=== PATIENT | female | born 1965 | race Caucasian/White ===

== ENCOUNTER → 2016-11-10 | Outpatient (REF) | payer OTHER | LOC: M LAB REF 17:52 | PROVIDERS: ATTEND Family Medicine | DX: Z01.419 Encounter for gynecological examination (general) (routine) without abnormal findings (principal) ==

== ENCOUNTER → 2016-11-11 | Outpatient (CLI) | payer OTHER ==
[2016-11-11 09:27] LABS: BASO % 0.4 % (0.0-1.0); EOS # 0.2 K/mm3 (0.0-0.50); EOS % 3.2 % (0.0-3.0); LARGE UNSTAINED CELL # 0.2 K/mm3 (0.0-0.4); LARGE UNSTAINED CELL % 3.1 % (0.0-4.0); LYMPH # 2.7 K/mm3 (1.5-4.5); LYMPH % 45.9 % (24.0-44.0); MEAN CORPUSCULAR HGB CONC 33.8 g/dl (32.0-36.5); MEAN CORPUSCULAR VOLUME 94.7 fl (80.0-96.0); MONO # 0.3 K/mm3 (0.0-0.8); MONO % 5.5 % (0.0-5.0); NEUTROPHILS # 2.5 K/mm3 (1.8-7.7); NEUTROPHILS % 41.9 % (36.0-66.0); PLATELET COUNT, AUTOMATED 248 k/mm3 (150-450); RED CELL DISTRIBUTION WIDTH 12.1 % (11.5-14.5); WHITE BLOOD COUNT 5.9 K/mm3 (4.0-10.0)
[2016-11-11 10:14] LABS: ALBUMIN 3.8 GM/DL (3.2-5.2); ALBUMIN/GLOBULIN RATIO 1.09 (1.00-1.93); BILIRUBIN,TOTAL 0.4 MG/DL (0.2-1.0); CREATININE FOR GFR 1.09 MG/DL (0.55-1.02); GLOMERULAR FILTRATION RATE 56.1 (>51); POTASSIUM SERUM 4.1 MEQ/L (3.5-5.1); TOTAL PROTEIN 7.3 GM/DL (6.4-8.2)
== END ==
LOC: M LAB 08:37
PROVIDERS: ATTEND Family Medicine
DX: I10 Essential (primary) hypertension (principal)

== ENCOUNTER → 2017-06-08 | Outpatient (REF) ==
[2017-06-08 10:12] LABS: HEMATOCRIT 39.6 % (36.0-47.0); HEMOGLOBIN 13.2 g/dl (12.0-16.0); MEAN CORPUSCULAR HEMOGLOBIN 30.8 pg (27.0-33.0); MEAN CORPUSCULAR HGB CONC 33.3 g/dl (32.0-36.5); MEAN CORPUSCULAR VOLUME 92.5 fl (80.0-96.0); PLATELET COUNT, AUTOMATED 254 10^3/uL (150-450); RED BLOOD COUNT 4.28 10^6/uL (4.00-5.40); RED CELL DISTRIBUTION WIDTH 12.6 % (11.5-14.5); WHITE BLOOD COUNT 7.7 10^3/uL (4.0-10.0)
[2017-06-08 10:51] LABS: ANION GAP 5 MEQ/L (8-16); BLOOD UREA NITROGEN 20 MG/DL (7-18); CALCIUM LEVEL 9.1 MG/DL (8.5-10.1); CARBON DIOXIDE LEVEL 32 MEQ/L (21-32); CHLORIDE LEVEL 104 MEQ/L (98-107); CHOLESTEROL LEVEL 205 MG/DL (<200); CREATININE FOR GFR 1.21 MG/DL (0.55-1.30); GLOMERULAR FILTRATION RATE 49.6 (>51); GLUCOSE, FASTING 92 MG/DL (70-100); HDL CHOLESTEROL 48 MG/DL (>40); LDL CHOLESTEROL 121.2 MG/DL (<100); NON-HDL-C 157 MG/DL; POTASSIUM SERUM 3.8 MEQ/L (3.5-5.1); SODIUM LEVEL 141 MEQ/L (136-145); TRIGLYCERIDES LEVEL 179 MG/DL (<150)
== END ==
LOC: M LAB 09:42
DX: Z02.9 Encounter for administrative examinations, unspecified (principal); Z12.31 Encounter for screening mammogram for malignant neoplasm of breast

== ENCOUNTER 2017-09-15 07:05 | Day surgery (SDC) | payer OTHER ==
[2017-09-15] MEDS ORDERED: VASOPRESSIN INJ 20 UNITS/ML VIAL As Ordered ×2 (07:11)
[2017-09-15 07:29] LABS: HEMATOCRIT 38.3 % (36.0-47.0); MEAN CORPUSCULAR HEMOGLOBIN 31.6 pg (27.0-33.0); MEAN CORPUSCULAR HGB CONC 33.9 g/dl (32.0-36.5); MEAN CORPUSCULAR VOLUME 93.2 fl (80.0-96.0); PLATELET COUNT, AUTOMATED 233 10^3/uL (150-450); RED BLOOD COUNT 4.11 10^6/uL (4.00-5.40); RED CELL DISTRIBUTION WIDTH 12.5 % (11.5-14.5); WHITE BLOOD COUNT 6.7 10^3/uL (4.0-10.0)
[2017-09-15] MEDS ORDERED: LR 1,000 ML IV ×2 (07:30)
[2017-09-15 07:46] LABS: ANION GAP 6 MEQ/L (8-16); BLOOD UREA NITROGEN 17 MG/DL (7-18); CALCIUM LEVEL 9.4 MG/DL (8.5-10.1); CARBON DIOXIDE LEVEL 31 MEQ/L (21-32); CHLORIDE LEVEL 103 MEQ/L (98-107); CREATININE FOR GFR 1.17 MG/DL (0.55-1.30); GLOMERULAR FILTRATION RATE 51.5 (>51); GLUCOSE, FASTING 96 MG/DL (70-100); POTASSIUM SERUM 3.1 MEQ/L (3.5-5.1); SODIUM LEVEL 140 MEQ/L (136-145)
[2017-09-15] MEDS: KCL 10MEQ/100ML SWI (KRUN) 100 ML IV ×2 (08:34)
[2017-09-15] MEDS: POTASSIUM CHLORIDE 10 MEQ SR TABLET PO ×2 (08:35)
[2017-09-15] MEDS: ACETAMINOPHEN 650 MG SUPP As Ordered ×2 (09:10)
[2017-09-15] MEDS ORDERED: ONDANSETRON 4MG/2ML VIAL (J2405) As Ordered ×2 (09:22)
[2017-09-15] MEDS ORDERED: dexameTHASONE 4 MG/ML 1ML VIAL (J1100) As Ordered ×2 (09:22)
[2017-09-15] MEDS ORDERED: ePHEDrine SULFATE 25 MG/5 ML(5MG/ML) SYRINGE As Ordered ×4 (09:22→09:42)
[2017-09-15] MEDS ORDERED: PROPOFOL 200 MG/20 ML VIAL As Ordered ×4 (09:22→14:04)
[2017-09-15] MEDS ORDERED: KETOROLAC 60 MG/2 ML VIAL (J1885) As Ordered ×2 (09:22)
[2017-09-15] MEDS ORDERED: LIDOCAINE 2% INJ 100 MG/5 ML SDV (FOR ANES.) As Ordered ×2 (09:22)
[2017-09-15] MEDS ORDERED: fentaNYL 250 MCG/5 ML INJECTION (J3010) As Ordered ×2 (09:22)
[2017-09-15] MEDS ORDERED: ROCURONIUM BROMIDE 50 MG/5 ML VIAL As Ordered ×4 (09:22→10:53)
[2017-09-15] MEDS ORDERED: HYDROmorphone HCL 2 MG/ML 1ML VIAL (J1170) As Ordered ×2 (09:22)
[2017-09-15] MEDS ORDERED: MIDAZOLAM INJ 2 MG/2 ML VIAL (J2250) As Ordered ×2 (09:22)
[2017-09-15] MEDS ORDERED: NEOSTIGMINE 10 MG/10 ML VIAL (J2710) As Ordered ×2 (09:40)
[2017-09-15] MEDS ORDERED: GLYCOPYRROLATE INJ 0.2 MG/ML 2 ML VIAL As Ordered ×4 (09:40)
[2017-09-15] MEDS: BUPIVACAINE/EPIN 0.25% 30 ML VIAL As Ordered ×2 (09:54)
[2017-09-15] MEDS: FLUORESCEIN 10% (100MG/ML) 5 ML VIAL As Ordered ×2 (09:54)
[2017-09-15] MEDS: METHYLENE BLUE 0.5% (5MG/ML) 10 ML AMP (PROVAYBLUE)(Q9968 PER 1MG) As Ordered ×2 (10:06)
[2017-09-15] MEDS: BUPIVACAINE/EPIN 0.5% 30 ML VIAL As Ordered ×2 (10:07)
[2017-09-15] MEDS ORDERED: PERCOCET 5MG/325MG TAB PO ×2 (14:45)
[2017-09-15] MEDS ORDERED: ONDANSETRON 4MG/2ML VIAL (J2405) IV ×2 (14:45)
[2017-09-15] MEDS ORDERED: HYDROMORPHONE HCL 0.5 MG/ 0.5 ML SYRINGE (J1170 PER 1) IV ×2 (14:45)
[2017-09-15] MEDS: fentaNYL 100 MCG/2 ML INJECTION (J3010) IV ×4 (14:48→14:53)
[2017-09-15] MEDS: LR 1,000 ML IV ×4 (15:46→19:09)
[2017-09-15] MEDS: PERCOCET 5MG/325MG TAB PO ×2 (16:32)
[2017-09-15] MEDS: SIMETHICONE 80 MG CHEW TAB PO ×2 (18:00)
[2017-09-15] MEDS: IBUPROFEN 800 MG TAB PO ×2 (19:08)
[2017-09-16] MEDS: SIMETHICONE 80 MG CHEW TAB PO ×4 (00:27→06:11)
[2017-09-16] MEDS: IBUPROFEN 800 MG TAB PO ×4 (00:28→06:12)
[2017-09-16] MEDS: PERCOCET 5MG/325MG TAB PO ×2 (08:35)
== END 2017-09-16 11:40 | disposition home or self-care (01) ==
LOC: M SDC 07:05 → M PED 15:31
DX: N81.2 Incomplete uterovaginal prolapse (principal); N81.10 Cystocele, unspecified; N81.6 Rectocele; N81.89 Other female genital prolapse; I10 Essential (primary) hypertension; K21.9 Gastro-esophageal reflux disease without esophagitis; M17.0 Bilateral primary osteoarthritis of knee; J45.909 Unspecified asthma, uncomplicated; Z88.2 Allergy status to sulfonamides; Z79.899 Other long term (current) drug therapy; Z78.0 Asymptomatic menopausal state
CPT/HCPCS: 58571

== ENCOUNTER → 2017-10-27 | Outpatient (CLI) | payer OTHER ==
[2017-10-27 15:35] LABS: ANION GAP 6 MEQ/L (8-16); BLOOD UREA NITROGEN 17 MG/DL (7-18); CALCIUM LEVEL 9.1 MG/DL (8.5-10.1); CARBON DIOXIDE LEVEL 32 MEQ/L (21-32); CHLORIDE LEVEL 105 MEQ/L (98-107); CREATININE FOR GFR 1.13 MG/DL (0.55-1.30); GLOMERULAR FILTRATION RATE 53.6 (>51); GLUCOSE, FASTING 93 MG/DL (70-100); POTASSIUM SERUM 4.3 MEQ/L (3.5-5.1); SODIUM LEVEL 143 MEQ/L (136-145)
== END ==
LOC: M LAB 14:32
DX: E87.6 Hypokalemia (principal)
CPT/HCPCS: 80048

== ENCOUNTER → 2017-11-29 | Outpatient (CLI) | payer OTHER ==
[2017-11-29 19:28] LABS: ANION GAP 10 MEQ/L (8-16); BLOOD UREA NITROGEN 21 MG/DL (7-18); CALCIUM LEVEL 9.3 MG/DL (8.5-10.1); CARBON DIOXIDE LEVEL 30 MEQ/L (21-32); CHLORIDE LEVEL 103 MEQ/L (98-107); CREATININE FOR GFR 1.24 MG/DL (0.55-1.30); GLOMERULAR FILTRATION RATE 48.2 (>51); GLUCOSE, FASTING 104 MG/DL (70-100); POTASSIUM SERUM 3.6 MEQ/L (3.5-5.1); SODIUM LEVEL 143 MEQ/L (136-145)
== END ==
LOC: M LAB 15:41
DX: I10 Essential (primary) hypertension (principal)
CPT/HCPCS: 80048

== ENCOUNTER → 2018-07-19 | Outpatient (REF) | payer OTHER ==
[~2018-07-19] MED LIST: BANO25CA PO; CHLO125TA PO; IBUP80TA PO; LISI10TA4 PO; OMEP20CA3 PO; OXYC1TAB23 PO; PROAAER10
[2018-07-19 10:45] LABS: HEMATOCRIT 38.8 % (36.0-47.0); HEMOGLOBIN 12.7 g/dl (12.0-15.5); MEAN CORPUSCULAR HEMOGLOBIN 30.9 pg (27.0-33.0); MEAN CORPUSCULAR HGB CONC 32.7 g/dl (32.0-36.5); MEAN CORPUSCULAR VOLUME 94.4 fl (80.0-96.0); PLATELET COUNT, AUTOMATED 240 10^3/uL (150-450); RED BLOOD COUNT 4.11 10^6/uL (4.00-5.40); WHITE BLOOD COUNT 6.3 10^3/uL (4.0-10.0)
[2018-07-19 11:14] LABS: CALCIUM LEVEL 9.5 MG/DL (8.5-10.1); CHOLESTEROL RISK RATIO 4.59 (<5); CREATININE FOR GFR 1.12 MG/DL (0.55-1.30); POTASSIUM SERUM 3.6 MEQ/L (3.5-5.1)
--- NOTE | 2018-07-19 12:33 | REPMRS ---
Patient History The patient states she has not had a clinical breast exam in over a year. Family history of breast cancer at age 70 in mother, breast cancer at age 50 in maternal aunt. Digital Mammo Screening Bilat: July 19, 2018 - Exam #: [id number] Bilateral CC and MLO view(s) were taken. Technologist: Rain Mcnulty, Technologist Prior study comparison: June 08, 2017, bilateral digital mammo screening bilat performed at [facility]. October 10, 2015, bilateral digital mammo screening bilat performed at [facility]. August 07, 2013, bilateral digital woman screen mammo, performed at [facility]. FINDINGS: There are scattered fibroglandular densities. There has been no change in the appearance of the mammogram from the prior studies. There is a mild amount of scattered fibroglandular density which is fairly symmetric. There is no interval development of dominant mass, architectural distortion, or clustered microcalcification suggestive of malignancy. 3-D tomosynthesis shows no additional findings. Assessment: BI-RADS/ACR category 1 mammogram. Negative Mammogram. Recommendation Breast MRI of both breasts in 6 months. Routine screening mammogram of both breasts in 1 year (for women over age 40). This patient's Lifetime Breast Cancer RIsk is estimated at 25.8 %. Annual screening Breast MRI scanniing is recommended for patient's whose lifetime risk assessment is over 20%. This mammogram was interpreted with the aid of an FDA-approved computer-aided dectection system. Electronically Signed By: Arnaldo Tovar MD 07/19/18 0139
== END ==
LOC: M RAD 10:01 → EDSTATUS 10:30
PROVIDERS: ATTEND Family Medicine
DX: Z12.31 Encounter for screening mammogram for malignant neoplasm of breast (principal)

== ENCOUNTER → 2019-05-22 | Outpatient (REF) ==
[~2019-05-22] MED LIST changes: +OMEP1CAP73 PO; -OMEP20CA3 PO
[2019-05-22 11:57] LABS: HEMATOCRIT 39.2 % (36.0-47.0); HEMOGLOBIN 12.6 g/dl (12.0-15.5); MEAN CORPUSCULAR HEMOGLOBIN 30.9 pg (27.0-33.0); MEAN CORPUSCULAR HGB CONC 32.1 g/dl (32.0-36.5); MEAN CORPUSCULAR VOLUME 96.1 fl (80.0-96.0); PLATELET COUNT, AUTOMATED 259 10^3/uL (150-450); RED BLOOD COUNT 4.08 10^6/uL (4.00-5.40); WHITE BLOOD COUNT 6.7 10^3/uL (4.0-10.0)
[2019-05-22 12:21] LABS: CALCIUM LEVEL 9.3 MG/DL (8.5-10.1); CHOLESTEROL RISK RATIO 4.521 (<5); CREATININE FOR GFR 1.08 MG/DL (0.55-1.30); GLOMERULAR FILTRATION RATE 56.1 (>51); POTASSIUM SERUM 3.6 MEQ/L (3.5-5.1)
== END ==
LOC: M LAB 10:27
PROVIDERS: ATTEND Physician Assistant
DX: Z02.1 Encounter for pre-employment examination (principal)

== ENCOUNTER → 2020-05-17 | Outpatient (CLI) | payer OTHER ==
[~2020-05-17] MED LIST changes: +LISI10TA22 PO; -LISI10TA4 PO
[2020-05-17 08:35] LABS: BASO % 0.7 % (0.0-1.0); EOS # 0.3 10^3/uL (0.0-0.5); EOS % 4.1 % (0.0-3.0); HEMOGLOBIN 12.5 g/dl (12.0-15.5); LYMPH # 2.3 10^3/uL (1.5-5.0); LYMPH % 37.1 % (24.0-44.0); MEAN CORPUSCULAR HEMOGLOBIN 31.3 pg (27.0-33.0); MEAN CORPUSCULAR HGB CONC 32.9 g/dl (32.0-36.5); MONO # 0.4 10^3/uL (0.0-0.8); NEUTROPHILS # 3.1 10^3/uL (1.5-8.5); NEUTROPHILS % 50.9 % (36.0-66.0); PLATELET COUNT, AUTOMATED 241 10^3/uL (150-450); WHITE BLOOD COUNT 6.1 10^3/uL (4.0-10.0)
[2020-05-17 09:14] LABS: ALBUMIN 3.9 GM/DL (3.2-5.2); BILIRUBIN,TOTAL 0.3 MG/DL (0.2-1.0); CALCIUM LEVEL 9.3 MG/DL (8.5-10.1); CHOLESTEROL RISK RATIO 4.117 (<5); CREATININE FOR GFR 1.17 MG/DL (0.55-1.30); FREE T4 0.94 NG/DL (0.76-1.46); GLOMERULAR FILTRATION RATE 50.9 (>51); POTASSIUM SERUM 3.3 MEQ/L (3.5-5.1); THYROID STIMULATING HORMONE 1.97 uIU/ML (0.358-3.740); TOTAL PROTEIN 7.3 GM/DL (6.4-8.2)
== END ==
LOC: M LAB 08:02
PROVIDERS: ATTEND Physician Assistant
DX: Z13.0 Encounter for screening for diseases of the blood and blood-forming organs and certain disorders involving the immune mechanism (principal); I10 Essential (primary) hypertension

== ENCOUNTER → 2020-05-31 | Outpatient (CLI) | payer OTHER ==
--- NOTE | 2020-05-31 16:29 | REPMRS ---
Patient History The patient states she has not had a clinical breast exam in over a year. Patient is postmenopausal. Family history of breast cancer at age 70 in mother, breast cancer at age 50 in maternal aunt. Digital Woman Screen Mammo: May 31, 2020 - Exam #: [id number] Bilateral CC and MLO view(s) were taken. Technologist: Dian Arechiga, Technologist Prior study comparison: July 19, 2018, bilateral digital mammo screening bilat, performed at [facility]. June 08, 2017, bilateral digital mammo screening bilat, performed at [facility]. October 10, 2015, bilateral digital mammo screening bilat, performed at [facility]. FINDINGS: The breast tissue is almost entirely fat. The Volpara volumetric breast density category is: A. There has been no change in the appearance of the mammogram from the prior studies. There is no interval development of dominant mass, architectural distortion, or grouped microcalcification typical of malignancy. 3-D tomosynthesis shows no additional findings. Assessment: BI-RADS/ACR category 1 mammogram. Negative Mammogram. Recommendation Breast MRI of both breasts in 6 months. Routine screening mammogram of both breasts in 1 year (for women over age 40). This patient's [facility] Lifetime Breast Cancer RIsk is estimated at 24.7 %. Annual screening Breast MRI scanniing is recommended for patient's whose lifetime risk assessment is over 20%. This mammogram was interpreted with the aid of an FDA-approved computer-aided dectection system. Electronically Signed By: Arnaldo Tovar MD 05/31/20 1735
== END ==
LOC: M WHC 12:57
PROVIDERS: ATTEND Physician Assistant
DX: Z12.31 Encounter for screening mammogram for malignant neoplasm of breast (principal); Z80.3 Family history of malignant neoplasm of breast

== ENCOUNTER → 2020-10-03 | Outpatient (CLI) | payer OTHER ==
[~2020-10-03] MED LIST changes: -BANO25CA PO; +DIPH-319 PO
[2020-10-03 11:31] LABS: ALBUMIN 3.9 GM/DL (3.2-5.2); BILIRUBIN,TOTAL 0.4 MG/DL (0.2-1.0); CALCIUM LEVEL 9.7 MG/DL (8.5-10.1); CREATININE FOR GFR 1.09 MG/DL (0.55-1.30); GLOMERULAR FILTRATION RATE 55.3 (>51); MAGNESIUM LEVEL 2.3 MG/DL (1.8-2.4); POTASSIUM SERUM 3.6 MEQ/L (3.5-5.1); TOTAL PROTEIN 7.3 GM/DL (6.4-8.2)
[2020-10-06 03:07] LABS: PROTEIN C FUNCTIONAL ACTIVITY 180 % (73-180); PROTEIN S FUNCTIONAL ACTIVITY 44 % (63-140)
== END ==
LOC: M WUC 08:32
PROVIDERS: ATTEND Physician Assistant
DX: Z00.00 Encounter for general adult medical examination without abnormal findings (principal); E87.6 Hypokalemia; Z83.2 Family history of diseases of the blood and blood-forming organs and certain disorders involving the immune mechanism

== ENCOUNTER → 2021-06-06 | Outpatient (CLI) | payer OTHER | LOC: M WHC 08:27 | PROVIDERS: ATTEND Nurse Practitioner Adult Health | DX: Z12.31 Encounter for screening mammogram for malignant neoplasm of breast (principal) ==

== ENCOUNTER → 2022-03-24 | Outpatient (CLI) | payer OTHER ==
[2022-03-24 10:02] LABS: BASO % 0.7 % (0.0-1.0); EOS # 0.2 10^3/uL (0.0-0.5); EOS % 2.7 % (0.0-3.0); HEMATOCRIT 38.3 % (36.0-47.0); HEMOGLOBIN 12.1 g/dl (12.0-15.5); LYMPH # 2.7 10^3/uL (1.5-5.0); LYMPH % 44.8 % (24.0-44.0); MEAN CORPUSCULAR HGB CONC 31.6 g/dl (32.0-36.5); MEAN CORPUSCULAR VOLUME 98.2 fl (80.0-96.0); MONO # 0.5 10^3/uL (0.0-0.8); MONO % 8.2 % (2.0-8.0); NEUTROPHILS # 2.6 10^3/uL (1.5-8.5); NEUTROPHILS % 43.4 % (36.0-66.0); PLATELET COUNT, AUTOMATED 231 10^3/uL (150-450); WHITE BLOOD COUNT 5.9 10^3/uL (4.0-10.0)
[2022-03-24 10:34] LABS: BLOOD UREA NITROGEN 20 MG/DL (9-23); CALCIUM LEVEL 9.3 MG/DL (8.5-10.1); CARBON DIOXIDE LEVEL 29 MMOL/L (20-31); CHLORIDE LEVEL 105 MMOL/L (98-107); CHOLESTEROL LEVEL 191 MG/DL (<200); CHOLESTEROL RISK RATIO 3.72 (<5); CREATININE FOR GFR 0.97 MG/DL (0.55-1.30); GLOMERULAR FILTRATION RATE > 60.0 (>51); GLUCOSE, FASTING 89 MG/DL (60-100); HDL CHOLESTEROL 51.3 MG/DL (>40); LDL CHOLESTEROL 112.1 MG/DL (<100); NON-HDL-C 140 MG/DL; POTASSIUM SERUM 4.3 MMOL/L (3.5-5.1); SODIUM LEVEL 140 MMOL/L (136-145); TRIGLYCERIDES LEVEL 138 MG/DL (<150)
== END ==
LOC: M WUC 08:02
PROVIDERS: ATTEND Family Medicine
DX: I10 Essential (primary) hypertension (principal)

== ENCOUNTER → 2022-09-30 | Outpatient (CLI) | payer OTHER ==
[2022-09-30 10:44] LABS: BASO % 0.6 % (0.0-1.0); EOS # 0.1 10^3/uL (0.0-0.5); EOS % 2.1 % (0.0-3.0); HEMATOCRIT 37.4 % (36.0-47.0); LYMPH # 2.1 10^3/uL (1.5-5.0); LYMPH % 38.9 % (24.0-44.0); MEAN CORPUSCULAR HGB CONC 32.1 g/dl (32.0-36.5); MEAN CORPUSCULAR VOLUME 96.6 fl (80.0-96.0); MONO # 0.4 10^3/uL (0.0-0.8); MONO % 7.5 % (2.0-8.0); NEUTROPHILS # 2.7 10^3/uL (1.5-8.5); NEUTROPHILS % 50.7 % (36.0-66.0); PLATELET COUNT, AUTOMATED 217 10^3/uL (150-450); RED BLOOD COUNT 3.87 10^6/uL (4.00-5.40); WHITE BLOOD COUNT 5.3 10^3/uL (4.0-10.0)
[2022-09-30 11:41] LABS: ALBUMIN 3.9 G/DL (3.2-5.2); ALKALINE PHOSPHATASE 98 U/L (46-116); ALT/SGPT 10 U/L (7.0-40); AST/SGOT 22 U/L (<34); BILIRUBIN,TOTAL 0.4 MG/DL (0.3-1.2); BLOOD UREA NITROGEN 20 MG/DL (9-23); CALCIUM LEVEL 8.9 MG/DL (8.5-10.1); CARBON DIOXIDE LEVEL 28 MMOL/L (20-31); CHLORIDE LEVEL 108 MMOL/L (98-107); CHOLESTEROL LEVEL 184 MG/DL (<200); CHOLESTEROL RISK RATIO 3.22 (<5); GLOMERULAR FILTRATION RATE > 60.0 (>51); GLUCOSE, FASTING 86 MG/DL (60-100); LDL CHOLESTEROL 108.8 MG/DL (<100); SODIUM LEVEL 141 MMOL/L (136-145); TOTAL PROTEIN 6.5 G/DL (5.7-8.2); TRIGLYCERIDES LEVEL 91 MG/DL (<150)
[2022-09-30 11:45] LABS: THYROID STIMULATING HORMONE 1.901 uIU/ML (0.55-4.78)
[2022-09-30 11:48] LABS: FREE T4 0.88 NG/DL (0.89-1.76)
== END ==
LOC: M WUC 08:34
PROVIDERS: ATTEND Nurse Practitioner Adult Health
DX: I10 Essential (primary) hypertension (principal); D68.59 Other primary thrombophilia; E78.5 Hyperlipidemia, unspecified

== ENCOUNTER → 2023-06-15 | Outpatient (CLI) | payer OTHER ==
[~2023-06-15] MED LIST changes: -DIPH-319 PO; +DIPH-429 PO
== END ==
LOC: M WHC 11:56
PROVIDERS: ATTEND Family Medicine
DX: Z12.31 Encounter for screening mammogram for malignant neoplasm of breast (principal)

== ENCOUNTER → 2023-10-08 | Outpatient (CLI) | payer OTHER ==
[2023-10-08 13:25] LABS: BASO % 0.5 % (0.0-1.0); EOS # 0.2 10^3/uL (0.0-0.5); EOS % 2.7 % (0.0-3.0); HEMATOCRIT 37.8 % (36.0-47.0); HEMOGLOBIN 12.1 g/dl (12.0-15.5); LYMPH # 2.6 10^3/uL (1.5-5.0); LYMPH % 44.4 % (24.0-44.0); MEAN CORPUSCULAR HEMOGLOBIN 31.7 pg (27.0-33.0); MONO # 0.5 10^3/uL (0.0-0.8); MONO % 8.6 % (2.0-8.0); NEUTROPHILS # 2.5 10^3/uL (1.5-8.5); NEUTROPHILS % 43.6 % (36.0-66.0); PLATELET COUNT, AUTOMATED 222 10^3/uL (150-450); RED BLOOD COUNT 3.82 10^6/uL (4.00-5.40); WHITE BLOOD COUNT 5.8 10^3/uL (4.0-10.0)
[2023-10-08 13:33] LABS: ALBUMIN 3.8 G/DL (3.2-5.2); ALKALINE PHOSPHATASE 95 U/L (46-116); ALT/SGPT 19 U/L (7.0-40); AST/SGOT 13 U/L (<34); BILIRUBIN,TOTAL 0.5 MG/DL (0.3-1.2); BLOOD UREA NITROGEN 20 MG/DL (9-23); CALCIUM LEVEL 9.4 MG/DL (8.5-10.1); CARBON DIOXIDE LEVEL 28 MMOL/L (20-31); CHLORIDE LEVEL 109 MMOL/L (98-107); CHOLESTEROL LEVEL 223 MG/DL (<200); CHOLESTEROL RISK RATIO 4.44 (<5); CREATININE FOR GFR 0.94 MG/DL (0.55-1.30); GLOMERULAR FILTRATION RATE > 60.0 (>51); GLUCOSE, FASTING 88 MG/DL (60-100); HDL CHOLESTEROL 50.2 MG/DL (>40); IRON (FE) 112 UG/DL (50-170); LDL CHOLESTEROL 145.6 MG/DL (<100); NON-HDL-C 172.8 MG/DL; PERCENT SATURATION 34.1 % (13.2-45.0); POTASSIUM SERUM 4.6 MMOL/L (3.5-5.1); SODIUM LEVEL 142 MMOL/L (136-145); TOTAL IRON BINDING CAPACITY 328 UG/DL (250-425); TOTAL PROTEIN 6.6 G/DL (5.7-8.2); TRIGLYCERIDES LEVEL 136 MG/DL (<150)
[2023-10-08 13:35] LABS: FERRITIN 117.4 NG/ML (7.3-270.7); FOLATE > 24.0 NG/ML (>5.4); FREE T4 1.09 NG/DL (0.89-1.76); VITAMIN B12 LEVEL 625 PG/ML (211-911)
[2023-10-08 13:36] LABS: THYROID STIMULATING HORMONE 2.079 uIU/ML (0.55-4.78)
== END ==
LOC: M WUC 10:19
PROVIDERS: ATTEND Family Medicine
DX: D53.0 Protein deficiency anemia (principal); I10 Essential (primary) hypertension; E78.5 Hyperlipidemia, unspecified

== ENCOUNTER → 2023-11-01 | Outpatient (CLI) | payer OTHER ==
[2023-11-01 11:35] LABS: ALBUMIN 3.8 G/DL (3.2-5.2); BILIRUBIN,DIRECT 0.1 MG/DL (<0.4); BILIRUBIN,TOTAL 0.5 MG/DL (0.3-1.2); TOTAL PROTEIN 6.5 G/DL (5.7-8.2)
== END ==
LOC: M WUC 08:25
PROVIDERS: ATTEND Nurse Practitioner Adult Health
DX: B35.1 Tinea unguium (principal)

== ENCOUNTER → 2024-05-10 | Outpatient (REF) | payer OTHER ==
[2024-05-10 15:01] LABS: ALBUMIN 3.7 G/DL (3.2-5.2); ALKALINE PHOSPHATASE 82 U/L (35-104); ALT/SGPT 19 U/L (7.0-40); AST/SGOT 19 U/L (<34); BILIRUBIN,TOTAL 0.5 MG/DL (0.3-1.2); BLOOD UREA NITROGEN 18 MG/DL (9-23); CALCIUM LEVEL 9.7 MG/DL (8.3-10.6); CARBON DIOXIDE LEVEL 27 MMOL/L (20-31); CHLORIDE LEVEL 107 MMOL/L (98-107); CHOLESTEROL LEVEL 225 MG/DL (<200); CHOLESTEROL RISK RATIO 4.01 (<5); CREATININE FOR GFR 0.95 MG/DL (0.55-1.30); GLOMERULAR FILTRATION RATE > 60.0 (>45); GLUCOSE, FASTING 92 MG/DL (74-106); LDL CHOLESTEROL 145.8 MG/DL (<100); POTASSIUM SERUM 4.7 MMOL/L (3.5-5.1); SODIUM LEVEL 144 MMOL/L (136-145); TRIGLYCERIDES LEVEL 116 MG/DL (<150)
== END ==
LOC: M LABWUC 13:11
PROVIDERS: ATTEND Nurse Practitioner Adult Health
DX: E78.5 Hyperlipidemia, unspecified (principal)

== ENCOUNTER → 2025-01-30 | Outpatient (CLI) | payer OTHER ==
[2025-01-30 12:53] LABS: BASO # 0.0 10^3/uL (0.0-0.2); BASO % 0.7 % (0.0-1.0); EOS # 0.1 10^3/uL (0.0-0.5); EOS % 2.6 % (0.0-3.0); LYMPH # 2.4 10^3/uL (1.5-5.0); LYMPH % 44.8 % (24.0-44.0); MONO # 0.5 10^3/uL (0.0-0.8); MONO % 9.9 % (2.0-8.0); NEUTROPHILS # 2.3 10^3/uL (1.5-8.5); NEUTROPHILS % 41.8 % (36.0-66.0); PLATELET COUNT, AUTOMATED 213 10^3/uL (150-450)
[2025-01-30 12:57] LABS: ALT/SGPT 22.0 U/L (7.0-40); AST/SGOT 24.0 U/L (<34); CALCIUM LEVEL 10.1 MG/DL (8.3-10.6); CARBON DIOXIDE LEVEL 27.0 MMOL/L (20-31); CHLORIDE LEVEL 108.0 MMOL/L (98-107); CHOLESTEROL LEVEL 201.0 MG/DL (<200); CHOLESTEROL RISK RATIO 3.31 (<5); CREATININE FOR GFR 0.98 MG/DL (0.55-1.30); GLOMERULAR FILTRATION RATE 66.1 (>45); LDL CHOLESTEROL 121.0 MG/DL (<100); NON-HDL-C 140.4 MG/DL; POTASSIUM SERUM 4.3 MMOL/L (3.5-5.1); SODIUM LEVEL 145.0 MMOL/L (136-145); TRIGLYCERIDES LEVEL 97.0 MG/DL (<150)
[2025-01-30 12:59] LABS: FREE T4 1.14 NG/DL (0.89-1.76)
== END ==
LOC: M WUC 08:23
PROVIDERS: ATTEND Family Medicine
DX: E78.00 Pure hypercholesterolemia, unspecified (principal); I10 Essential (primary) hypertension